=== PATIENT | female | born 1950 | race Caucasian/White ===

== ENCOUNTER 2025-01-05 17:44 | Inpatient (IN) | payer MEDICARE, OTHER, SELFPAY ==
[2025-01-05 15:35] VITALS: BP 149/80
--- NOTE | 2025-01-05 16:10 | ED.GENMED ---
History of Present Illness
General
Chief Complaint: Abnormal Lab Value
Time Seen by Provider: 01/05/25 15:45
History of Present Illness
History of Present Illness:
74-year-old woman with history of CKD with baseline creatinine of 1.5-1.7 presenting to the emergency department with abnormal outpatient labs. She had routine blood work done for preop appointment for hip replacement. Her sodium was 117. Her
creatinine was 1.9. She does drink about 80 to 100 ounces of tea. Drinks about 8 ounces of water a day. She is not on any diuretics. No vomiting diarrhea. No increased output from her last. She denies any medical complaints at this time. She
does state that she has had issues with her sodium in the past before. She last had blood work checked in December and her sodium was normal at that time.
Phy Exam
Physical Exam
Physical Exam:
GENERAL: in no acute distress
HEENT: normocephalic, extraocular movements intact, moist oral mucosa
NECK: normal inspection
RESPIRATORY: no respiratory distress, clear to auscultation bilaterally
CARDIOVASCULAR: regular rate and rhythm
ABDOMEN/: soft, non-distended, non-tender to palpation, no rebound or guarding
EXTREMITIES: non-tender, no edema/swelling
NEUROLOGIC: awake and alert, moves all extremities
SKIN: warm
Course
Orders/Labs/Results
Orders:
Orders
01/05/25 16:01
Osmolality, Random Urine Urgent
Urine Sodium Urgent
Vital Signs
Initial and Last Documented VS:
Initial Vital Signs
Temp Pulse Resp BP Pulse Ox
97.6 F 92 18 149/80 99
01/05/25 15:35 01/05/25 15:35 01/05/25 15:35 01/05/25 15:35 01/05/25 15:35
Last Documented Vital Signs
Temp Pulse Resp BP Pulse Ox
97.6 F 92 18 149/80 99
01/05/25 15:35 01/05/25 15:35 01/05/25 15:35 01/05/25 15:35 01/05/25 15:35
MDM/Problems Addressed
Differential Diagnosis Includes:
Patient is a 74-year-old woman with history of CKD presenting to the emergency department with hyponatremia seen on outpatient routine testing. On arrival vitals and exam is reassuring. I did review patient's blood work which did show sodium of
117. She does appear euvolemic. 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 Will add on urinalysis and urine sodium. Discussed with nephrology who recommended 32 ounces fluid restriction while awaiting urine results. Discussed
with hospitalist who accepted patient to their service.
*Pulse Oximetry
SaO2: 99
Oxygen Mode of Delivery: Room air
Patient hypoxic: no
*Critical Care Note
Total Time (30-74mins, 75-104mins- exclusive of procedures): Not Applicable
ED Attending Note
-
Portions of this chart may have been created with voice recognition software.� Occasional wrong word or��sound alike� substitutions may have occurred due to the inherent limitations of voice recognition software.
Discharge Plan
Departure
Patient Disposition: Admit
Date of Disposition: 01/05/25
Time of Disposition: 16:10
Presentation/result/management discussed w/ accepting MD/DO: Hospitalist
Discharge Problem:
Hyponatremia
Prescriptions:
No Action
acetaminophen [Tylenol] 325 mg Tablet
650 mg PO Q4H PRN (Reason: pain)
metoprolol succinate 50 mg Tablet Extended Release 24 Hr
50 mg PO DAILY
levothyroxine 25 mcg Tablet
25 mcg PO DAILY
sodium bicarbonate 650 mg Tablet
1,300 mg PO TID
amlodipine 10 mg Tablet
10 mg PO DAILY
simvastatin 20 mg Tablet
20 mg PO HS
gabapentin 300 mg Capsule
300 mg PO TID
loratadine 10 mg Tablet
10 mg PO DAILY
omeprazole 20 mg Tablet,Delayed Release (Dr/Ec)
20 mg PO DAILY
dabigatran etexilate [Pradaxa] 75 mg Capsule
75 mg PO BID
Women's Multivitamin
1 dose PO DAILY
magnesium L-lactate [Mag-Lactate SR] 84 mg Tablet Extended Release
84 mg PO DAILY
naproxen 250 mg Tablet
250 mg PO BID PRN (Reason: pain)
Interventions
Interventions:
*Risk Screen - Suicide Last Done: 01/05/25 15:35
*General Assessment Last Done: 01/05/25 15:35
*ED COVID-19 Vaccine History Last Done: 01/05/25 15:35
Discharge Date and Time
Print Language: MONTSERRATIAN
[2025-01-05 16:13] VITALS: BMI 29.2
--- NOTE | 2025-01-05 16:19 | HPS.HSE ---
Addendum entered and electronically signed by BONI Storey 01/05/25 17:13:
patient takes sodium bicarb as outpatient.
Original Note:
Family Physician
-
Family Physician:
Chief Complaint
-
abnormal labs.
History of Present Illness
74-year-old woman with history of CKD with baseline creatinine of 1.5-1.7, crohn's disease with ileostomy, DVT, HTN, hypothyroidism, atrial fib, CKD presenting to the emergency department with abnormal outpatient labs. She had routine blood work
done for preop appointment for hip replacement. Her sodium was 117. Her creatinine was 1.9. She does drink about 80 oz of tea. drinks 8oz juice in the morning. barely drinks water. denied HARMON,dizzy or syncope.denied fever, chills, chest pain, sob.
denied abdominal pain,n,v,d. she has heavy liquid output from Ileostomy which is normal.denied increased or decreased urine output. denied dysuria or hematuria.
admitting for further managment.not taking sodium bicarbonate.
Medical History
Past Medical History
Past Medical History: Reports Other
Additional Past Medical History:
crhon's disease
HLD
HTN
Past Surgical History: Reports Other
Additional Past Surgical History:
cholecystectomy
ileo-colectomy
rotator cuff
b/l knee replacement
Social History
Tobacco: Former Smoker
Alcohol: Daily
Drug: None
Personal:
Family History
Family History: Not pertinent
Allergies / Home Medications
Allergies reflects when Allergies were last updated in [facility].
Home Medications with original date entered in [facility]
Allergy/Medication List:
Allergies
Allergy/AdvReac Type Severity Reaction Status Date / Time
banana Allergy Diarrhea Verified 01/05/25 15:39
cefazolin (From Anc) Allergy red rash, Verified 01/05/25 15:39
itching
cephalexin Allergy red rash, Verified 01/05/25 15:39
itching
Penicillins Allergy Unknown Verified 01/05/25 15:39
Home Medications
amlodipine 10 mg tablet 10 mg PO DAILY 01/04/25
dabigatran etexilate 75 mg capsule (Pradaxa) 75 mg PO BID 01/04/25
gabapentin 300 mg capsule 300 mg PO TID 01/04/25
levothyroxine 25 mcg tablet 25 mcg PO DAILY 01/04/25
loratadine 10 mg tablet 10 mg PO DAILY 01/04/25
magnesium L-lactate 84 mg tablet,extended release 84 mg PO BID@1700,2100 01/04/25
metoprolol succinate 50 mg tablet,extended release 24 hr 50 mg PO DAILY 01/04/25
naproxen 250 mg tablet 250 mg PO BIDPRN PRN mild pain 01/04/25
omeprazole 20 mg tablet,delayed release 20 mg PO DAILY 01/04/25
simvastatin 20 mg tablet 20 mg PO HS 01/04/25
sodium bicarbonate 650 mg tablet 1,300 mg PO TID 01/04/25
therapeutic multivitamin 1 tab PO DAILY 01/04/25
magnesium L-lactate 84 mg tablet,extended release 168 mg PO DAILY 01/05/25
Review of Systems
-
Constitutional: Reports No Symptoms
EENT: Reports No Symptoms
Respiratory: Reports No Symptoms
Cardiac: Reports No Symptoms
Abdomen/GI: Reports No Symptoms
: Reports No Symptoms
Musculoskeletal: Reports No Symptoms
Skin: Reports No Symptoms
Neurological: Reports No Symptoms
Endocrine: Reports No Symptoms
Hematologic/Lymphatic: Reports No Symptoms
Psych: Reports No Symptoms
Physical Exam
Vital Signs
Vital Signs
Temp Pulse Resp BP Pulse Ox
97.6 F 92 18 149/80 99
01/05/25 15:35 01/05/25 15:35 01/05/25 15:35 01/05/25 15:35 01/05/25 16:13
Physical Exam
General: Well Developed, Well Nourished and No Apparent Distress
HEENT: NormoCephalic, Moist mucous membranes and Atraumatic
Respiratory: Clear
Cardiac: S1/S2 and Regular Rhythm; No Murmur or Rub
GI: Soft, Non Tender, Non Distended and Normal Bowel Sounds; No Organomegaly
Rectal: Deferred by Provider
Musculoskeletal: No Clubbing, No Cyanosis and No Edema
Skin: No Rash
Neuro: AO x 3 and Nonfocal/grossly intact
Psych: Calm
Data Reviewed
-
Lab Data: Labs Reviewed by me
Impression/Plan
-
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
# LULA on CKD stage III
-na 117
-fluid restriction
-urine osmolality, urine sodium
-nephrology consulted
# Essential hypertension
- Norvasc continue
#History for PE
# Paroxysmal A-fib
- Pradaxa continued
-Metoprolol continue with hold parameter
# Hyperlipidemia
- Statin continued
# GERD
- PPI continued
# Hypothyroidism
- Levothyroxine continued
# DVT prophylaxis
- Pradaxa
# CODE STATUS
- Full code
--- NOTE | 2025-01-05 16:49 | W.CON.NEPH ---
Consultation
-
Date/Time Consultation Requested: January 05, 2025
Date/Time Consultation Performed: January 05, 2025 at 4:30 PM
Requesting Provider: Dr. Burks
Performing Provider: Dr. Macdonald
Reason for Consultation: Hyponatremia
Medical History
-
Chief Complaint: Hyponatremia
History of Present Illness:
74-year-old woman with history of CKD with baseline creatinine of 1.5-1.7 presenting to the emergency department with abnormal outpatient labs. She had routine blood work done for preop appointment for hip replacement. Her sodium was 117. Her
creatinine was 1.9. She does drink about 80 to 100 ounces of tea. Drinks about 8 ounces of water a day. She is not on any diuretics. No vomiting diarrhea.
She has a ostomy bag from a Crohn's disease was done about 4 years ago which puts out watery stool on most occasions and is yet consistent. She has no symptoms of nausea vomiting she takes no acute or chronic NSAIDs. She has been hospitalized
before for hyponatremia lower than 117 in the past and she had been treated with 3% saline.
Renal consult for hyponatremia
Past Medical History
CKD with baseline creatinine of 1.5-1.7 Crohn's disease, hyperkalemia, hyperlipidemia, recurrent hyponatremia, chronic pain
Social History
Tobacco: Non-Smoker
Alcohol: None
Family History
Family History: Not Pertinent
Allergies / Home Medications
Allergy/AdvReac Type Severity Reaction Status Date / Time
banana Allergy Diarrhea Verified 01/05/25 15:39
cefazolin (From [facility]) Allergy red rash, Verified 01/05/25 15:39
itching
cephalexin Allergy red rash, Verified 01/05/25 15:39
itching
Penicillins Allergy Unknown Verified 01/05/25 15:39
�Medication �Instructions �Recorded �Confirmed �Type
amlodipine 10 mg tablet 10 mg PO DAILY 01/04/25 01/05/25 History
dabigatran etexilate 75 mg capsule 75 mg PO BID 01/04/25 01/05/25 History
(Pradaxa)
gabapentin 300 mg capsule 300 mg PO TID 01/04/25 01/05/25 History
levothyroxine 25 mcg tablet 25 mcg PO DAILY 01/04/25 01/05/25 History
loratadine 10 mg tablet 10 mg PO DAILY 01/04/25 01/05/25 History
magnesium L-lactate 84 mg 84 mg PO BID@1700,2100 01/04/25 01/05/25 History
tablet,extended release
metoprolol succinate 50 mg 50 mg PO DAILY 01/04/25 01/05/25 History
tablet,extended release 24 hr
naproxen 250 mg tablet 250 mg PO BIDPRN PRN mild pain 01/04/25 01/05/25 History
omeprazole 20 mg tablet,delayed 20 mg PO DAILY 01/04/25 01/05/25 History
release
simvastatin 20 mg tablet 20 mg PO HS 01/04/25 01/05/25 History
sodium bicarbonate 650 mg tablet 1,300 mg PO TID 01/04/25 01/05/25 History
therapeutic multivitamin 1 tab PO DAILY 01/04/25 01/05/25 History
magnesium L-lactate 84 mg 168 mg PO DAILY 01/05/25 01/05/25 History
tablet,extended release
Review of Systems
-
Tired otherwise has no symptoms
All other systems: Negative unless noted
Physical Exam
Vital Signs
Vital Signs
Temp Pulse Resp BP Pulse Ox
97.6 F 92 18 149/80 99
01/05/25 15:35 01/05/25 15:35 01/05/25 15:35 01/05/25 15:35 01/05/25 16:13
Physical Exam
General no acute distress
HEENT no cephalic atraumatic extraocular muscle intact no scleral icterus no JVD neck supple
lungs clear to auscultation bilateral
heart regular S1-S2 positive
abdomen soft nontender positive bowel sounds
extremities no edema pulses present bilateral
Neurologically nonfocal alert and oriented x 3
Skin no lesions no abrasions no petechiae
Psych normal affect no bizarre behavior
Data Reviewed
-
Labs: Labs Reviewed by me, Discussed with Physician, Discussed with Patient and Discussed with Family
Assessment/Plan
-
74-year-old woman with history of CKD with baseline creatinine of 1.5-1.7 presenting to the emergency department with abnormal outpatient labs. She had routine blood work done for preop appointment for hip replacement. Her sodium was 117. Her
creatinine was 1.9. She does drink about 80 to 100 ounces of tea. Drinks about 8 ounces of water a day. She is not on any diuretics. No vomiting diarrhea.
She has a ostomy bag from a Crohn's disease was done about 4 years ago which puts out watery stool on most occasions and is yet consistent. She has no symptoms of nausea vomiting she takes no acute or chronic NSAIDs. She has been hospitalized
before for hyponatremia lower than 117 in the past and she had been treated with 3% saline.
Renal consult for hyponatremia
Impression.
Hyponatremia 117 with a urine sodium less than 5 and urine osmolality 427.
Crohn's disease with ostomy.
Hypertension.
Osteoarthritis.
Plan.
Fluid restrict
Repeat labs in 6 hours
Start gentle normal saline
No indication for hypertonic saline at this time
[2025-01-05 17:51] VITALS: BP 118/60
--- NOTE | 2025-01-05 18:18 | W.PN.UPDATE ---
Update Note
Progress Note Update
This is an addendum to H&P written by Stacey Jean Baptiste on 01/05/2025. �Patient seen and examined independently with [employer].
74-year-old female past medical history of known hyponatremia on sodium bicarbonate, atrial fibrillation on Pradaxa, Crohn's disease with ileostomy, chronic high output ostomy, CKD, hypercholesteremia, hypertension, DVT, osteoarthritis,
hypothyroidism, presenting for sodium of 117 on outpatient labs. �Drinking 80 ounces of tea per day. �No symptoms.�
Creatinine of 1.9, as per orthopedics baseline is 1.2-1.4.
Patient with asymptomatic hyponatremia secondary to likely polydipsia. �Possibly naproxen contributing. �Urine sodium, osmolality pending. �Also with LULA. �Nephrology recommends 32 ounce fluid restriction. �Hold naproxen.� Continue sodium tablets.
May require hypertonic saline later.
[2025-01-05 18:31] VITALS: BP 143/65
[2025-01-05 18:39] VITALS: BMI 29.2
[2025-01-05] MEDS: NSS 1000 IV (18:45)
--- NOTE | 2025-01-05 19:14 | PTCARENOTE ---
pt presented from ED via stretcher, pt is AAO*3, Vss, room air. pt is oriented to the room. call woo within the reach. Plan of care ongoing.
[2025-01-05] MEDS: MAG-TAB SR 84 MG PO ×2 (19:40→21:15)
[2025-01-05] MEDS: PRADAXA 75 MG PO (19:40)
[2025-01-05] MEDS: NEURONTIN 200 MG PO (21:15)
[2025-01-05] MEDS: SODIUM BICARBONATE 1300 MG PO (21:16)
[2025-01-05] MEDS: LIPITOR 10 MG PO (21:16)
[2025-01-05] MEDS: TYLENOL 650 MG PO (21:33)
[2025-01-05 23:40] VITALS: BP 105/45
[2025-01-06 01:43] LABS: Blood Urea Nitrogen 53 mg/dl (7-17); Calcium 9.5 mg/dl (8.4-10.2); Carbon Dioxide 20 mmol/L (22-30); Chloride 93 mmol/L (98-107); Estimated Creatinine Clearance 31 ml/min; Glucose 100 mg/dl (70-99); Potassium 4.0 mmol/L (3.5-5.1); Sodium 124 mmol/L (135-145); eGFR 39.97
[2025-01-06] MEDS: SYNTHROID 25 MCG PO (05:50)
[2025-01-06 06:15] LABS: Blood Urea Nitrogen 46 mg/dl (7-17); Calcium 9.5 mg/dl (8.4-10.2); Carbon Dioxide 18 mmol/L (22-30); Chloride 97 mmol/L (98-107); Estimated Creatinine Clearance 36 ml/min; Glucose 95 mg/dl (70-99); Potassium 3.9 mmol/L (3.5-5.1); Sodium 126 mmol/L (135-145); eGFR 48.09
[2025-01-06 07:05] VITALS: BP 106/53
[2025-01-06] MEDS: CLARITIN 10 MG PO (07:59)
[2025-01-06] MEDS: PROTONIX 40 MG PO (07:59)
[2025-01-06] MEDS: PRADAXA 75 MG PO (07:59)
[2025-01-06] MEDS: NEURONTIN 200 MG PO ×2 (07:59→15:13)
[2025-01-06] MEDS: SODIUM BICARBONATE 1300 MG PO ×2 (08:00→15:13)
[2025-01-06] MEDS: NORVASC 10 MG PO (08:01)
[2025-01-06] MEDS: MAG-TAB SR 168 MG PO (08:04)
[2025-01-06] MEDS: NSS 1000 IV (08:04)
[2025-01-06] MEDS: TOPROL XL 50 MG PO (08:04)
--- NOTE | 2025-01-06 08:22 | WOUNDNOTE ---
PLANTAR TOES/FEET
--- NOTE | 2025-01-06 08:23 | WOUNDNOTE ---
L GREAT AND 2ND TOES (PLANTAR)
--- NOTE | 2025-01-06 08:26 | WOUNDNOTE ---
[facility] RN note: Patient admitted with hyponatremia. Patient lives with her .
See H&P for complete history.
PMH: CKD, Chron's with ileostomy, DVT, HTN, a fib, CKD, bilateral knee replacement, former smoker, PE.
Wound Location and type/assessment: Patient admitted with: healing second degree appearing quijano plantar great toes and L 2nd plantar toe from walking on a hot beach in [place] a week ago Friday. R great plantar toe burn pink with a small yellow
fibrin in center. +Palpable pedal pulses. Patient has a chronic R flank draining old HANH tube site from previous gall stone removal surgery. The last gallbladder stone removal surgery was at [facility] last December as per patient. She follows [facility]
surgeon and [place] [facility]. R flank wound with small opening with some raised pink tissue, small amount of green lee drainage. +Local MASD at site. Patient likes to use a Welly brand Band-aid for the site. She stated her with bring
in her Band-aids.
Appetite: on low cholesterol diet.
Pressure redistribution devices in place: [employer] Accumax. Patient is mobile. She wears comfortable slippers to ambulate.
Plan: Band-aids changed on affected toes (added Vaseline to Band-aids). [id number] Optifoam Amaury lite foam applied to R flank old drain site.
Will update and confirm orders with Dr. Oliveira or Dr. Varghese and discussed with ALLIE Delgado.
Care plan to be updated and will follow as needed. Patient to follow up with her [facility] physician and [facility].
--- NOTE | 2025-01-06 08:30 | WOUNDNOTE ---
[facility] RN note: Patient admitted with hyponatremia. Patient lives with her .
See H&P for complete history.
PMH: CKD, Chron's with ileostomy, DVT, HTN, a fib, CKD, bilateral knee replacement, former smoker, PE.
Wound Location and type/assessment: Patient admitted with: healing second degree appearing quijano plantar great toes and L 2nd plantar toe from walking on a hot beach in [place] a week ago Friday. R great plantar toe burn pink with a small yellow
fibrin in center. +Palpable pedal pulses. Patient has a chronic R flank draining old HANH tube site from previous gall stone removal surgery. The last gall stone removal surgery was at [facility] on 12/26/23 as per patient. She follows [facility] surgeon
Dr. Desmond Tim, a GI doctor and ID doctor. She stated she had a CT scan last October which was negative for abscess. She follows [place] [facility]. R flank wound with small opening with some raised pink tissue, small amount of green lee
drainage. +Local MASD at site. Patient likes to use a Welly brand Band-aid for the site. She stated her with bring in her Band-aids for her flank and toes.
Appetite: on low cholesterol diet.
Pressure redistribution devices in place: [employer] Accumax. Patient is mobile. She wears comfortable slippers to ambulate.
Plan: Band-aids changed on affected toes (added Vaseline to Band-aids). [id number] Optifoam Amaury lite foam applied to R flank old drain site.
Will update and confirm orders with Dr. Oliveira or Dr. Varghese and discussed with ALLIE Delgado.
Care plan to be updated and will follow as needed. Patient to follow up with her [facility] physician and [facility].
--- NOTE | 2025-01-06 14:10 | W.PN.NEPH.PH ---
Today's Communication / Plan
-
bmo
Assessment/Plan
-
74-year-old woman with history of CKD with baseline creatinine of 1.5-1.7 presenting to the emergency department with abnormal outpatient labs. She had routine blood work done for preop appointment for hip replacement. Her sodium was 117. Her
creatinine was 1.9. She does drink about 80 to 100 ounces of tea. Drinks about 8 ounces of water a day. She is not on any diuretics. No vomiting diarrhea.
She has a ostomy bag from a Crohn's disease was done about 4 years ago which puts out watery stool on most occasions and is yet consistent. She has no symptoms of nausea vomiting she takes no acute or chronic NSAIDs. She has been hospitalized
before for hyponatremia lower than 117 in the past and she had been treated with 3% saline.
Renal consult for hyponatremia
Impression.
Hyponatremia 117 with a urine sodium less than 5 and urine osmolality 427.
Crohn's disease with ostomy.
Hypertension.
Osteoarthritis.
Plan.
Fluid restrict
ckeck bmp now if 128 or better ok for dc with fr of 60 oz going foward
bmp friday if dc and fu with her electrophysiology tech
-
-
Date of Service: January 06, 2025
CC / HPI / ROS
-
no cp or sob
less tired today
10 point ros done
Labs
-
Labs:
Sodium 126 mmol/L (135-145) L 01/06/25 05:22
Potassium 3.9 mmol/L (3.5-5.1) 01/06/25 05:22
Chloride 97 mmol/L (98-107) L 01/06/25 05:22
Carbon Dioxide 18 mmol/L (22-30) L 01/06/25 05:22
BUN 46 mg/dl (7-17) H 01/06/25 05:22
Creatinine 1.2 mg/dL (0.6-1.0) H 01/06/25 05:22
eGFR 48.09 01/06/25 05:22
Glucose 95 mg/dl (70-99) 01/06/25 05:22
Calcium 9.5 mg/dl (8.4-10.2) 01/06/25 05:22
Physical Exam
-
Vital Signs:
Vital Signs
Temp Pulse Resp BP Pulse Ox
97.8 F 80 16 106/53 96
01/06/25 07:05 01/06/25 08:01 01/06/25 07:05 01/06/25 08:01 01/06/25 10:29
Lung Excursion:: Normal
Abdomen:: Soft
Bowel Sounds:: Normal
Extremity Edema:: None: Bilateral:
[2025-01-06 14:44] LABS: Blood Urea Nitrogen 39 mg/dl (7-17); Calcium 9.5 mg/dl (8.4-10.2); Carbon Dioxide 19 mmol/L (22-30); Chloride 101 mmol/L (98-107); Estimated Creatinine Clearance 36 ml/min; Glucose 130 mg/dl (70-99); Potassium 4.0 mmol/L (3.5-5.1); Sodium 129 mmol/L (135-145); eGFR 48.09
[2025-01-06 15:05] VITALS: BP 126/59
--- NOTE | 2025-01-06 15:41 | W.PN.NEPH.PH ---
Today's Communication / Plan
-
Okay for discharge from renal standpoint
Assessment/Plan
-
74-year-old woman with history of CKD with baseline creatinine of 1.5-1.7 presenting to the emergency department with abnormal outpatient labs. She had routine blood work done for preop appointment for hip replacement. Her sodium was 117. Her
creatinine was 1.9. She does drink about 80 to 100 ounces of tea. Drinks about 8 ounces of water a day. She is not on any diuretics. No vomiting diarrhea.
She has a ostomy bag from a Crohn's disease was done about 4 years ago which puts out watery stool on most occasions and is yet consistent. She has no symptoms of nausea vomiting she takes no acute or chronic NSAIDs. She has been hospitalized
before for hyponatremia lower than 117 in the past and she had been treated with 3% saline.
Renal consult for hyponatremia
Impression.
Hyponatremia 117 with a urine sodium less than 5 and urine osmolality 427.
Crohn's disease with ostomy.
Hypertension.
Osteoarthritis.
Plan.
Fluid restrict
Sodium improved with IV fluids and fluid restriction okay with discharge with repeat sodium ordered at 1:30 PM showing 129
I asked her to restrict fluids to 60 ounces going forward
-
-
Date of Service: January 06, 2025
CC / HPI / ROS
-
no cp or sob
less tired today
10 point ros done
Labs
-
Labs:
Sodium 129 mmol/L (135-145) L 01/06/25 14:24
Potassium 4.0 mmol/L (3.5-5.1) 01/06/25 14:24
Chloride 101 mmol/L (98-107) 01/06/25 14:24
Carbon Dioxide 19 mmol/L (22-30) L 01/06/25 14:24
BUN 39 mg/dl (7-17) H 01/06/25 14:24
Creatinine 1.2 mg/dL (0.6-1.0) H 01/06/25 14:24
eGFR 48.09 01/06/25 14:24
Glucose 130 mg/dl (70-99) H 01/06/25 14:24
Calcium 9.5 mg/dl (8.4-10.2) 01/06/25 14:24
Physical Exam
-
Vital Signs:
Vital Signs
Temp Pulse Resp BP Pulse Ox
97.8 F 80 16 106/53 96
01/06/25 07:05 01/06/25 08:01 01/06/25 07:05 01/06/25 08:01 01/06/25 10:29
Lung Excursion:: Normal
Abdomen:: Soft
Bowel Sounds:: Normal
Extremity Edema:: None: Bilateral:
--- NOTE | 2025-01-06 15:51 | W.PN.HOSP.TC ---
Addendum entered and electronically signed by Axel Guadarrama MD 01/06/25 21:33:
Attending Addendum-
I saw and evaluated the patient. I reviewed the resident�s note and agree with findings and plan as documented in the resident�s note. Sub: feels greatly improved seen with . would like to go home. Feels back to baseline. 'why am i here?'
Urinating more frequently due to IVF no other urinary sxs. Full 12 point ROS reviewed and negative except as documented Exam: Vitals reviewed in chart GEN-NAD heart RRR lungs clear abd ileostomy present with semi solid stool soft NT LE no edema
#acute on chroninc hypovolemic hyponatremia
# LULA on CKD stage IIIa
-na 117->129
-fluid restriction
-urine osmolality, urine sodium- volume depletion
-nephrology input appreciated
- ok for DC home with close follow up
# Ileostomy
- cont ostomy care
# Essential hypertension
- Norvasc continue
#History for PE
# Paroxysmal A-fib
- Pradaxa continued
-Metoprolol continue with hold parameter
# Hyperlipidemia
- Statin continued
# GERD
- PPI continued
# Hypothyroidism
- Levothyroxine continued
# DVT prophylaxis
- Pradaxa
# CODE STATUS
- Full code--> DNR
Dispo DC home
ACP
Patient consented to discuss, was with , time spent explanation of advance directives, changes in health status, patient�s health care wishes if the patient becomes unable to make health decisions, goals of care, code status, and prognosis 'i
dont want to be full code i have an advanced directive and DNR. Thank you for asking me my wishes!' - 16 minutes
Time spent coordinating care, DC planning, review of DC plan of care with resident, transition of care, review of records, med rec/scripts sent electronically, consults, notes, d/w consultants, nursing, family, and CM total time documented is
exclusive of any additional time listed that was spent in advance care planning discussion� 31 mins >50% of this time was devoted to counseling and coordination of care
Original Note:
Today's Communication/Plan
-
Patient receiving IV fluids for treatment of hyponatremia, which is improving
Amenable to discharge to home later today.
Assessment / Plan
Assessment / Plan
#Acute hypovolemic hyponatremia
-Salt tabs for Na repletion
-IV fluids: NS 70 mls/hr IV
-Na trending up on IV fluids from admission: 117 (7) > 126 (/3 AM) > 129 (3 PM)
-Monitor clinical status
-Patient amenable to discharge home later today
#Essential hypertension
-continue amlodipine
#Paroxysmal atrial fibrillation
-Continue dabigatran
-Continue metoprolol
#Hyperlipidemia
-Continue atorvastatin
#GERD
-Continue PPI
#Hypothyroidism
-continue levothyroxine
#DVT ppx
dabigatran
Anticipated Discharge: Today
Subjective/Interval History
-
Date of Service: January 06, 2025
Patient is seen OOB and sitting in the chair on hospital day #2. No current complaints. Patient feels well. Amenable to discharge home today.
Objective Data
-
Labs:
Laboratory Results
01/06/25 01/06/25
05:22 14:24
Sodium 126 L 129 L
Potassium 3.9 4.0
Chloride 97 L 101
Carbon Dioxide 18 L 19 L
BUN 46 H 39 H
Creatinine 1.2 H 1.2 H
Glucose 95 130 H
Calcium 9.5 9.5
Vital Signs:
Vital Signs
Temp Pulse Resp BP Pulse Ox
97.8 F 80 16 106/53 96
01/06/25 07:05 01/06/25 08:01 01/06/25 07:05 01/06/25 08:01 01/06/25 10:29
I&O
01/05/25 01/06/25 01/07/25
06:59 06:59 06:59
Intake Total 1080 / 1080
Output Total 750 / 750
Balance 330 / 330
Review of Systems
-
History Source: Patient
Constitutional: Denies Fatigue
Respiratory: Denies Trouble Breathing
Cardiac: Denies Chest Pain
Abdomen/GI: Denies Abdominal Pain or Nausea
Neuro: Denies Headache or Other (Denies confusion, vision changes)
Physical Exam
-
General: No Apparent Distress and Conversant
HEENT: Normocephalic and Atraumatic
Respiratory: Clear to Auscultation and Non Labored Respirations
Cardiac: Regular Rhythm; Negative Murmur, Rub or Gallop
GI: Soft, Nontender and Normal Bowel Sounds
Neuro: Awake, AO x 3, No Motor Deficits, No Sensory Deficits and Other (Cranial nerves intact); Negative Slurred Speech
Psych: Calm
Data Reviewed
-
Labs: Labs Reviewed by me
--- NOTE | 2025-01-06 16:20 | CM ---
Alert awake oriented patient who lives with her Domingo in a 2 story home with 1 step to enter and 13 steps to bed/bathroom. She is independent in activates of daily living.She does drive .She uses no adaptive devices.
Stephan[facility] VN in past . No SNF hx
Pharmacy [facility]
PCP Dr Pack
PLAN Home with no needs
[2025-01-06] MEDS: MAG-TAB SR 84 MG PO (16:45)
--- NOTE | 2025-01-07 18:35 | W.DCSUMMARY ---
Addendum entered and electronically signed by Axel Guadarrama MD 01/07/25 22:40:
Read, reviewed, and agree. See same day progress note for additional details.
Ashwin Guadarrama MD
Original Note:
Documented by User: Nigel Varghese MD, Resident 01/07/25 19:45
Discharge Summary
Discharge Data
Date of Admission: 01/05/25
Date of Discharge: 01/06/25
-
Pending Results: No
Hospital Course
Discharging Physician : Nigel Varghese MD; Axel Guadarrama MD
Disposition : Home
Primary care physician : � � �Gaston Pack
Principal Discharge diagnosis : Acute on chronic hypovolemic hyponatremia; LULA on CKD stage IIIa
Chronic Discharge diagnosis : Essential hypertension; paroxysmal A-fib; hyperlipidemia; GERD; hypothyroidism
Hospital Course : Patient underwent preoperative blood work for hip replacement, which found her to be hyponatremic with a sodium of 117. Patient was also found to have an acute kidney injury with a creatinine of 1.9. Patient was asymptomatic on
presentation. Patient was treated with oral fluid restriction and IV normal saline to treat her hyponatremia and LULA. The patient's sodium and creatinine levels were serially monitored, which showed both levels incrementally improving. Patient
remained asymptomatic throughout the hospital course. Patient's sodium level julia to 129 and creatinine returned to baseline, and she was cleared for discharge. Patient was directed to restrict oral fluid intake to 60 fluid ounces per day going
forward. Repeat BMP January 11.
In addition, the patient's chronic medical conditions were managed as follows:
1. Essential hypertension: Managed with home medication amlodipine 10 mg p.o. daily. Patient remained clinically stable.
2. Paroxysmal A-fib: Managed with home medications dabigatran and metoprolol succinate 50 mg p.o. daily. Patient remained clinically stable
3. Hyperlipidemia: Managed with atorvastatin 10 mg p.o. daily. Patient remained clinically stable.
4. Hypothyroidism: Managed with levothyroxine 25 mcg p.o. daily. Patient remained clinically stable
5. GERD: Managed with pantoprazole 40 mg. Patient remained clinically stable
Important imaging findings : N/A
Procedure findings : N/A
Discharge Plan
-
Patient Disposition: Home (Routine Discharge)
Discharge Diagnosis/Procedures: Acute hypovolemic hyponatremia
Condition: Good
Diet: As tolerated
Additional Diets: Per nephrology, limit fluid intake to 60 fl oz per day
Activity: As tolerated
Driving Restrictions: As prior to admission
Bathing Restrictions: None
Blood Work: Follow-up basic metabolic panel (BMP) in one week
Activity Restrictions/Additional Instructions:
Follow up with PCP within one week
Wound Care Instructions
Plantar toe quijano-clean with saline or soap and water, Vaseline, cover with Band-aid, change daily and as needed loosened dressing.
R flank draining area-clean with saline or soap and water, cover with patient's Band-aid, change daily and as needed for drainage.
Follow up with restaurant maintenance technician as needed.
Follow up with [facility] or wound care center .
Referrals:
Ant Pack DO [Family Provider, Family Practice]
Prescriptions:
Continued
metoprolol succinate 50 mg Tablet Extended Release 24 Hr
50 mg PO DAILY
therapeutic multivitamin Tablet
1 tab PO DAILY
levothyroxine 25 mcg Tablet
25 mcg PO DAILY
amlodipine 10 mg Tablet
10 mg PO DAILY
simvastatin 20 mg Tablet
20 mg PO HS
gabapentin 300 mg Capsule
300 mg PO TID
loratadine 10 mg Tablet
10 mg PO DAILY
omeprazole 20 mg Tablet,Delayed Release (Dr/Ec)
20 mg PO DAILY
dabigatran etexilate [Pradaxa] 75 mg Capsule
75 mg PO BID
magnesium L-lactate 84 mg Tablet Extended Release
84 mg PO BID@1700,2100
naproxen 250 mg Tablet
250 mg PO BIDPRN PRN (Reason: mild pain)
magnesium L-lactate 84 mg Tablet Extended Release
168 mg PO DAILY
Discontinued
sodium bicarbonate 650 mg Tablet
1,300 mg PO TID
Discharge Orders:
Discharge Patient (As Directed); Ordered 01/06/25
Ordered By: Nigel Varghese
Discharge Date and Time
Discharge Date/Time: 01/06/25 17:39
Print Language: HONDURAN

Documented by User: Axel Guadarrama MD 01/07/25 22:40
Discharge Summary
Discharge Data
Date of Admission: 01/05/25
Date of Discharge: 01/07/25
Discharge Plan
-
Patient Disposition: Home (Routine Discharge)
Discharge Diagnosis/Procedures: Acute hypovolemic hyponatremia
Condition: Good
Diet: As tolerated
Additional Diets: Per nephrology, limit fluid intake to 60 fl oz per day
Activity: As tolerated
Driving Restrictions: As prior to admission
Bathing Restrictions: None
Blood Work: Follow-up basic metabolic panel (BMP) in one week
Activity Restrictions/Additional Instructions:
Follow up with PCP within one week
Wound Care Instructions
Plantar toe quijano-clean with saline or soap and water, Vaseline, cover with Band-aid, change daily and as needed loosened dressing.
R flank draining area-clean with saline or soap and water, cover with patient's Band-aid, change daily and as needed for drainage.
Follow up with restaurant maintenance technician as needed.
Follow up with [facility] or wound care center .
Referrals:
Ant Pack, [Family Provider, Family Practice]
Prescriptions:
Continued
metoprolol succinate 50 mg Tablet Extended Release 24 Hr
50 mg PO DAILY
therapeutic multivitamin Tablet
1 tab PO DAILY
levothyroxine 25 mcg Tablet
25 mcg PO DAILY
amlodipine 10 mg Tablet
10 mg PO DAILY
simvastatin 20 mg Tablet
20 mg PO HS
gabapentin 300 mg Capsule
300 mg PO TID
loratadine 10 mg Tablet
10 mg PO DAILY
omeprazole 20 mg Tablet,Delayed Release (Dr/Ec)
20 mg PO DAILY
dabigatran etexilate [Pradaxa] 75 mg Capsule
75 mg PO BID
magnesium L-lactate 84 mg Tablet Extended Release
84 mg PO BID@1700,2100
naproxen 250 mg Tablet
250 mg PO BIDPRN PRN (Reason: mild pain)
magnesium L-lactate 84 mg Tablet Extended Release
168 mg PO DAILY
Discontinued
sodium bicarbonate 650 mg Tablet
1,300 mg PO TID
Discharge Orders:
Discharge Patient (As Directed); Ordered 01/06/25
Ordered By: Nigel Varghese
Discharge Date and Time
Discharge Date/Time: 01/06/25 17:39
Print Language: HONDURAN
== END 2025-01-06 17:39 | disposition home or self-care (01) | DRG 641 ==
LOC: 4 EAST ACU 17:44
PROVIDERS: Registered Nurse; ADMITTING PHYSICIAN Hospitalist; ATTENDING PHYSICIAN Family Medicine; EMERGENCY PHYSICIAN Student in an Organized Health Care Education/Training Program; FAMILY PHYSICIAN Family Medicine; OTHER PHYSICIAN Internal Medicine Nephrology
DX: E86.1 Hypovolemia (principal); N17.9 Acute kidney failure, unspecified; K50.90 Crohn's disease, unspecified, without complications; E87.1 Hypo-osmolality and hyponatremia; I12.9 Hypertensive chronic kidney disease with stage 1 through stage 4 chronic kidney disease, or unspecified chronic kidney disease; N18.31 Chronic kidney disease, stage 3a; I48.0 Paroxysmal atrial fibrillation; E78.5 Hyperlipidemia, unspecified; K21.9 Gastro-esophageal reflux disease without esophagitis; E03.9 Hypothyroidism, unspecified; Z79.890 Hormone replacement therapy; Z79.899 Other long term (current) drug therapy; Z66 Do not resuscitate; Z96.653 Presence of artificial knee joint, bilateral; Z87.891 Personal history of nicotine dependence; Z88.1 Allergy status to other antibiotic agents; Z88.0 Allergy status to penicillin; Z86.711 Personal history of pulmonary embolism; E87.5 Hyperkalemia; G89.29 Other chronic pain; M19.90 Unspecified osteoarthritis, unspecified site; Z91.018 Allergy to other foods
CPT/HCPCS: 80048; 83930; 83935; 84300; 93005; 99285

== ENCOUNTER 2025-01-12 05:47 | Inpatient (IN) | payer MEDICARE, OTHER, SELFPAY ==
--- NOTE | 2024-12-13 10:57 | CM ---
CM reviewed medical records. CM spoke with patient via live telephone. Patient confirmed demographics. Patient is active with her PCP at [facility]. Patient has medication coverage and plans to you the [facility] in [place]. Patient has had
a history of VN, but is currently not on service. Patient does not have a SNF history. Patient stated that she has all the DME that she needs and confirmed that she has borrowed equipment from friends and family.
Patient's and son will be available for transportation and supervision.
CM encouraged patient to make outpatient PT appointment on 01/14. Patient intends to make that appointment.
PLAN: Home with outpatient PT, patient to make appointment.
[2025-01-05 09:42] VITALS: BMI 27.5
[2025-01-05 11:09] LABS: Hematocrit 35.7 % (37.0-47.0); Hemoglobin 12.8 g/dL (12.0-16.0); Mean Corp Hgb Conc. 35.9 g/dL (33.0-37.0); Mean Corpuscular Volume 87.5 fL (81.0-99.0); Platelet Count 422 10^3/uL (130-400); Red Cell Dist. Width 12.3 % (11.5-14.5)
[2025-01-05 12:02] LABS: ALT (SGPT) 28 U/L (0-35); AST (SGOT) 38 U/L (14-36); Albumin 4.9 g/dl (3.5-5.0); Alkaline Phosphatase 116 U/L (38-126); Blood Urea Nitrogen 65 mg/dl (7-17); Calcium 10.1 mg/dl (8.4-10.2); Carbon Dioxide 20 mmol/L (22-30); Chloride 84 mmol/L (98-107); Estimated Creatinine Clearance 23 ml/min; Glucose 94 mg/dl (70-99); Potassium 4.3 mmol/L (3.5-5.1); Sodium 117 mmol/L (135-145); Total Protein 8.0 g/dl (6.3-8.2); eGFR 27.71
[2025-01-05 13:02] LABS: Glycohemoglobin (HgbA1c) 6.2 % (4.0-5.6)
[2025-01-05 14:17] VITALS: BMI 27.5
--- NOTE | 2025-01-05 15:16 | W.PREADMORTH ---
Ortho Preadmission Testing
-
Late entry - I called patient re: her labs today, in particular her sodium and creatinine.
She has a known history of hyponatremia for which she takes sodium bicarb TID. Her sodium today, however, is critically low at 117.
She also has underlying CKD stage 3 (baseline 1.2-1.4 per records). Today her labs demonstrate an LULA with a creatinine of 1.9.
I expressed my concerns to the patient and she has reluctantly agreed to go to the ER for further treatment.
I recommended [facility] for ER treatment given her records can be easily reviewed afterwards.
She reports she will either come here or [place] which is closer for her.
Dr. Sagastume notified of labs today. Will await further instructions re: upcoming surgery on 01/12.
[2025-01-12] VITALS (16 sets, daily range): BP systolic 96–126; BP diastolic 49–72; PULSE 75; O2SAT 95–96; BMI 27.5
[2025-01-12] MEDS: TYLENOL 650 MG PO ×4 (06:35→23:21)
[2025-01-12] MEDS: CELEBREX 200 MG PO (06:36)
[2025-01-12] MEDS: NORMOSOL-R/PLASMALYTE-A 1000 IV (06:38)
[2025-01-12 07:03] LABS: Blood Urea Nitrogen 50 mg/dl (7-17); Calcium 10.0 mg/dl (8.4-10.2); Carbon Dioxide 21 mmol/L (22-30); Chloride 90 mmol/L (98-107); Estimated Creatinine Clearance 23 ml/min; Glucose 103 mg/dl (70-99); Potassium 3.9 mmol/L (3.5-5.1); Sodium 124 mmol/L (135-145); eGFR 27.71
[2025-01-12] MEDS: DILAUDID 0.25 MG IV (08:01)
[2025-01-12] MEDS: DILAUDID 0.5 MG IV ×3 (08:17→08:42)
[2025-01-12] MEDS: NSS 1000 IV (09:01)
[2025-01-12] MEDS: ROXICODONE 5 MG PO ×4 (09:05→23:21)
--- NOTE | 2025-01-12 10:19 | W.PN.UPDATE ---
Update Note
Progress Note Update
R hip OA s/p R LORETTA w/ Dr Sagastume 01/12/25
- s/p b/l TKA, 2009, at an outside facility
DVT prophylaxis - resumption of home Pradaxa, b/l venous foot pumps
HTN - + parameters - monitor BP
PAF, pharmacological therapy with Metoprolol and oral anticoagulation with Pradaxa
PACs, asymptomatic
- Monitor on tele
- Continue BB
- Resume Pradaxa tonight
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
Pulmonary embolism per records
- Resume Pradaxa tonight
- Early mobility as tolerated
- Plasma flow devices HIGHLY recommended for outpatient use
CKD stage 3 with history of recurrent acute kidney injuries - repeat BMP tonight and tomorrow
- Baseline Cr ranges between 1.2-1.7
- Minimize nephrotoxins
- Consult nephrology d/t LULA
GERD - continue PPI therapy
Crohn's disease, status post ileostomy 2020 - per pt preference, will initially order Colace and Senna prn
Fatty liver disease with mildly elevated transaminase - reduce max dose of Tylenol daily
Chronic hyponatremia, on sodium bicarbonate
Chronic hypomagnesemia, on oral supplement
History of hyperkalemia
- BMP tonight and in AM
- Continue supplements
- NSS running
- Fluid restriction in place
- Consult nephrology for further recs
HLD
History of intraabdominal abscess
Spinal stenosis
Hypothyroidism
Secondary hyperparathyroidism of renal origin
Basal cell carcinoma, status post excision
PTSD
Vitamin D deficiency
Mild thrombocytosis
Prediabetes, A1c 6.2
Remote history of tobacco abuse
[2025-01-12] MEDS: CLARITIN PO (11:15)
[2025-01-12] MEDS: PROTONIX 20 MG PO ×2 (11:17→21:30)
[2025-01-12] MEDS: SODIUM BICARBONATE PO (11:18)
[2025-01-12] MEDS: NEURONTIN 300 MG PO ×2 (11:18→20:46)
--- NOTE | 2025-01-12 11:27 | W.CON.NEPH ---
Addendum entered and electronically signed by Mark Obrien MD 01/12/25 17:31:
Resident note below reviewed with the following additions
74-year-old female seen previously with hyponatremia but noted to have high fluid intake. It was recommended that she cut her fluid intake down closer to 60 ounces. She was able to manage 70 ounces per day. She does note that she still has
significant output from her ostomy, and has to empty it every 2 hours., Likely totaling a 2 L loss over the day. She returns today for elective right hip arthroplasty. Blood work preoperatively demonstrated a sodium level of 124 and a creatinine
of 1.9.
I agree with the exam below.
Lab values reviewed as well as older values as noted.
X-ray on 01/12/2025 of the right hip shows satisfactory placement of the replacement
Impression
Hyponatremia
LULA on CKD IIIa
Crohn's disease
Ostomy with output
Hypertension
Osteoarthritis
Plan
Significant GI volume loss, which is chronic
Removed fluid restriction
Continue saline
IV bolus at this time given hypotension
She would benefit from improved oral intake or reduction of ostomy output though she believes that multiple things have been tried for the ostomy output in the past without success
She has apparently also tried salt tablets but this had caused nausea
She has received outpatient IV fluids saline which has helped
Follow BMP
Original Note:
Consultation
-
Date/Time Consultation Requested: 01-12-25
Date/Time Consultation Performed: 01-12-25
Requesting Provider: Sarina Aldana
Performing Provider: Dr. Mark Obrien
Reason for Consultation: Hyponatremia; acute kidney injury
Medical History
-
Chief Complaint: Joint pain
History of Present Illness:
Marina Barrett, 74-year-old with CKD IIIa, is admitted for R hip arthroplasty, which she had today. She was recently admitted for hyponatremia found in outpatient labs, treated with 60 oz fluid restriction and IV NSS. Cause for her hyponatremia was
attributed to drinking too much tea, about 100-120 oz per day. She was discharged home on 60 oz of fluid restriction. Labs before OR today showed worsened hyponatremia (124) from discharge last admission (129), and an LULA (1.9 from 1.2). Her
baseline cr is around 1.2-1.5. In the past 4 days that she had the fluid restriction at home, she has managed to follow it as prescribed. She has continued to put out considerable output in her colostomy bag - about 10 oz every 2 hours or about 120
oz per day
Past Medical History
CKD with baseline creatinine of 1.2-1.5 Crohn's disease, hyperkalemia, hyperlipidemia, recurrent hyponatremia, chronic pain
Social History
Tobacco: Non-Smoker
Alcohol: None
Family History
Family History: Not Pertinent
Allergies / Home Medications
Allergy/AdvReac Type Severity Reaction Status Date / Time
banana Allergy Diarrhea Verified 01/12/25 06:12
cefazolin (From Ancef) Allergy red rash, Verified 01/12/25 06:12
itching
cephalexin Allergy red rash, Verified 01/12/25 06:12
itching
Penicillins Allergy Remote Verified 01/12/25 06:12
reaction
�Medication �Instructions �Recorded �Confirmed �Type
amlodipine 10 mg tablet 10 mg PO DAILY Blood Pressure 01/04/25 01/12/25 History
dabigatran etexilate 75 mg capsule 75 mg PO BID Blood Clot 01/04/25 01/12/25 History
(Pradaxa) Prevention/Tx
gabapentin 300 mg capsule 300 mg PO TID Neurological 01/04/25 01/12/25 History
Condition
levothyroxine 25 mcg tablet 25 mcg PO DAILY Thyroid 01/04/25 01/12/25 History
loratadine 10 mg tablet 10 mg PO DAILY Allergies 01/04/25 01/12/25 History
magnesium L-lactate 84 mg 84 mg PO BID@1700,2100 Supplement 01/04/25 01/12/25 History
tablet,extended release
metoprolol succinate 50 mg 50 mg PO DAILY Blood Pressure 01/04/25 01/12/25 History
tablet,extended release 24 hr
naproxen 250 mg tablet 250 mg PO BIDPRN PRN mild pain 01/04/25 01/12/25 History
omeprazole 20 mg tablet,delayed 20 mg PO DAILY Gastrointestinal 01/04/25 01/12/25 History
release Issue
simvastatin 20 mg tablet 20 mg PO HS High Cholesterol 01/04/25 01/12/25 History
therapeutic multivitamin 1 tab PO DAILY Supplement 01/04/25 01/12/25 History
magnesium L-lactate 84 mg 168 mg PO DAILY Supplement 01/05/25 01/12/25 History
tablet,extended release
sodium bicarbonate 650 mg tablet 1,300 mg PO BID 01/12/25 01/12/25 History
Review of Systems
-
History Source: Patient
All other systems: Negative unless noted
Constitutional: No Symptoms
EENT: No Symptoms
Respiratory: No Symptoms
Cardiac: No Symptoms
Abdomen/GI: No Symptoms
: No Symptoms
Musculoskeletal: Joint Pain
Skin: No Symptoms
Neurological: No Symptoms
Endocrine: No Symptoms
Hematologic/Lymphatic: No Symptoms
Physical Exam
Vital Signs
Vital Signs
Temp Pulse Resp BP Pulse Ox
97.6 F 83 16 123/71 97
01/12/25 09:50 01/12/25 09:50 01/12/25 09:50 01/12/25 09:50 01/12/25 09:50
Lab Results
WBC 7.6 10^3/uL (4.8-10.8) 01/05/25 10:09
RBC 4.08 10^6/uL (4.20-5.40) L 01/05/25 10:09
Hgb 12.8 g/dL (12.0-16.0) 01/05/25 10:09
Hct 35.7 % (37.0-47.0) L 01/05/25 10:09
Plt Count 422 10^3/uL (130-400) H 01/05/25 10:09
eGFR 27.71 01/12/25 06:25
Albumin 4.9 g/dl (3.5-5.0) 01/05/25 10:09
Physical Exam
HEENT: Anicteric and Conjunctivae Clear
Respiratory: Clear and Nonlabored Respirations
Cardiac: S1/S2 and Regular Rate/Rhythm
Abdomen: Soft, Nontender, Nondistended and Other (colostomy)
Genito-urinary: No Costovertebral Tender
Musculoskeletal: No Clubbing, No Cyanosis and No Edema
Skin: No Rash and No Bruising
Neuro: Nonfocal/Grossly Intact
Psych: Mood/afflect pleasant and Insight/judgement good
Data Reviewed
-
Radiology: Image Personally Visualized and interpreted
Labs: Labs Reviewed by me, Discussed with Patient and Discussed with Family
Assessment/Plan
-
Impression
Hyponatremia
LULA on CKD IIIa
Crohn's disease
Ostomy with likely chronic diarrhea
Hypertension
Osteoarthritis
Plan
Significant GI volume loss, which is chronic, with fluid restriction likely caused a volume depleted state.
Excess ADH likely multifactorial.
Discontinue fluid restriction.
Encouraged her routine fluid intake.
Continue IV NSS.
Follow BMP.
Limit NSAIDs use.
--- NOTE | 2025-01-12 14:44 | PTCARENOTE ---
0945 Pt arriveed from PACU. VSS. 99% 2L O2. Pt AAOX3. Neurovascular checks with in normal limits. IVF infusing. scant dressing to primaseal. Assessment questions complete. oriented to room and call woo. bed locked and in lowest position.
[2025-01-12] MEDS: NSS 500 IV (17:45)
[2025-01-12] MEDS: MAG-TAB SR 84 MG PO ×2 (17:45→20:47)
[2025-01-12] MEDS: ANCEF IV (17:47)
[2025-01-12] MEDS: ANCEF 5 IV (18:25)
[2025-01-12] MEDS: BACTROBAN 2% OINTMENT 1 APPLIC NASAL (20:46)
[2025-01-12] MEDS: DECADRON 4 MG PO (20:46)
[2025-01-12] MEDS: SODIUM BICARBONATE 1300 MG PO (20:47)
[2025-01-12] MEDS: PRADAXA 75 MG PO (20:47)
[2025-01-12] MEDS: LIPITOR 10 MG PO (21:26)
[2025-01-12 21:29] LABS: Blood Urea Nitrogen 40 mg/dl (7-17); Calcium 8.2 mg/dl (8.4-10.2); Carbon Dioxide 17 mmol/L (22-30); Chloride 97 mmol/L (98-107); Estimated Creatinine Clearance 32 ml/min; Glucose 219 mg/dl (70-99); Magnesium 1.2 mg/dl (1.6-2.3); Potassium 4.3 mmol/L (3.5-5.1); Sodium 124 mmol/L (135-145); eGFR 39.97
[2025-01-13 03:00] VITALS: BP 126/66
[2025-01-13] MEDS: ROXICODONE 5 MG PO ×2 (05:15→10:35)
[2025-01-13] MEDS: TYLENOL 650 MG PO ×2 (05:16→11:38)
[2025-01-13] MEDS: ANCEF 5 IV (06:03)
[2025-01-13 07:12] LABS: Blood Urea Nitrogen 34 mg/dl (7-17); Calcium 8.5 mg/dl (8.4-10.2); Carbon Dioxide 22 mmol/L (22-30); Chloride 99 mmol/L (98-107); Estimated Creatinine Clearance 37 ml/min; Glucose 127 mg/dl (70-99); Magnesium 1.4 mg/dl (1.6-2.3); Potassium 4.3 mmol/L (3.5-5.1); Sodium 127 mmol/L (135-145); eGFR 48.09
[2025-01-13 07:35] VITALS: BP 120/58
[2025-01-13] MEDS: PROTONIX 20 MG PO (08:26)
[2025-01-13] MEDS: CLARITIN 10 MG PO (08:26)
[2025-01-13] MEDS: SODIUM BICARBONATE 1300 MG PO (08:27)
[2025-01-13] MEDS: PRADAXA 75 MG PO (08:27)
[2025-01-13] MEDS: NEURONTIN 300 MG PO (08:27)
[2025-01-13] MEDS: DECADRON 4 MG PO (08:28)
[2025-01-13] MEDS: BACTROBAN 2% OINTMENT 1 APPLIC NASAL (08:28)
[2025-01-13] MEDS: TOPROL XL 50 MG PO (08:29)
[2025-01-13] MEDS: SYNTHROID 25 MCG PO (08:30)
[2025-01-13] MEDS: MAG-TAB SR 168 MG PO (08:58)
--- NOTE | 2025-01-13 10:50 | CM ---
Patient seen at bedside with patient and PA. Patient stated that they livves in a 2 story home with commode, walker, cane and grab bars. Patient in process of changing her PCP but currently goes to [facility]; Dr. Cain
Ramone. Patient plan is home with and follow up with outpatient therapy. Patient uses the [facility] in [place]. Patient is for discharge home today and IMM completed and signed form placed on chart. CM will continue to follow for
dsicharge planning needs.
Plan; home with outpatient therapy per surgery
[2025-01-13 11:02] VITALS: BP 106/49; PULSE 75; O2SAT 96
--- NOTE | 2025-01-13 11:04 | W.PN.ORTHO ---
Today's Communication / Plan
-
Await PT and OT recs.
D/c possible for later today w/ the understanding she gets a repeat BMP drawn 01/17. Pt agreeable. Labs trending in right direction.
Assessment
.
Distal Motor Intact: Yes
Dressing:
Clean, dry and intact.
Assessment:
R hip OA s/p R LORETTA w/ Dr Sagastume 01/12/25
- s/p b/l TKA, 2009, at an outside facility
DVT prophylaxis - resumption of home Pradaxa, b/l venous foot pumps
HTN - + parameters - BPs currently stable
- s/p IVF bolus last night due to hypotension
PAF, pharmacological therapy with Metoprolol and oral anticoagulation with Pradaxa
PACs, asymptomatic
- Maintaining NSR on tele
- Continue BB
- Resumed Pradaxa evening of surgery
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
Pulmonary embolism per records
- Resumed Pradaxa evening of surgery
- Early mobility as tolerated
- Plasma flow devices HIGHLY recommended for outpatient use
CKD stage 3 with history of recurrent acute kidney injuries - Creatinine improved from 1.9 -> 1.4 -> 1.2 post-op
- Baseline Cr ranges between 1.2-1.7
- Continue to minimize nephrotoxins
- Appreciate nephrology recs
- Repeat BMP 01/17, w/ results to routine accredited pharmacy technician. Pt reportedly already has script.
GERD - continue PPI therapy
Crohn's disease, status post ileostomy 2020 - per pt preference, will initially order Colace and Senna prn
Fatty liver disease with mildly elevated transaminase - reduce max dose of Tylenol daily
Chronic hyponatremia, on sodium bicarbonate
Chronic hypomagnesemia, on oral supplement
History of hyperkalemia
- Electrolyte imbalances likely 2* GI losses from ileostomy
- Sodium and magnesium improving w/ continuation of supplements. Pt has remained asymptomatic throughout inpatient stay.
- s/p NSS
- Fluid restriction d/c by nephro
- Repeat BMP Friday, 01/17, w/ results to routine accredited pharmacy technician
HLD
History of intraabdominal abscess
Spinal stenosis
Hypothyroidism
Secondary hyperparathyroidism of renal origin
Basal cell carcinoma, status post excision
PTSD
Vitamin D deficiency
Mild thrombocytosis
Prediabetes, A1c 6.2
Remote history of tobacco abuse
Plan
.
Surgery / Date: R LORETTA w/ Dr Sagastume 01/12/25
DVT Prophylaxis: Pradaxa
Activity:
Out of bed.
PT/OT
Discharge Plan: Home w/ Outpatient PT
Subjective
.
.:
Patient resting comfortably in her chair.
R hip pain reportedly overall well controlled w/ Oxycodone.
Denies any acute complaints. Feels overall well.
Eager for potential d/c today.
Vital Signs and Labs
.
Vital Signs and Labs:
Lab Results
01/05/25 10:09
01/13/25 05:35
Temp Pulse Resp BP Pulse Ox
97.9 F 78 18 120/58 97
01/13/25 07:35 01/13/25 08:28 01/13/25 07:35 01/13/25 08:28 01/13/25 07:35
Non-invasive Hgb result: 12.2
Physical Exam
-
HEENT: No pallor, cyanosis, or jaundice. Throat clear.
NECK: Supple. No JVD.
RESPIRATORY: Lungs clear to auscultation.
CVS: S1, S2 normal. RRR.�
ABDOMEN: Soft, non-tender. No distension. +Ileostomy bag.
EXTREMITIES: Small bruise noted by R hip incision. Strength equal, no calf pain with palpation/dorsiflexion. Calves soft.
GLUTEN SETTLING TENDER: AOx3. No focal deficits. management trainee marketing grossly intact
--- NOTE | 2025-01-13 11:12 | W.PN.NEPH.PH ---
Today's Communication / Plan
-
Discharge
Assessment/Plan
-
Impression
Hyponatremia
LULA on CKD IIIa
Crohn's disease
Ostomy with output
Hypertension
Osteoarthritis
Plan
No fluid or dietary restrictions from a renal perspective
She has follow-up with her lead mechanic as an outpatient
Blood work Friday using her lead mechanic outpatient slip
Okay for discharge
-
-
Date of Service: January 13, 2025
CC / HPI / ROS
-
Chief Complaint:
Hyponatremia
History of Present Illness:
Sodium 127 with saline
BP improved and stable
High ostomy output
Review of Systems:
No chest pain or shortness of breath
Labs
-
Labs:
WBC 7.6 10^3/uL (4.8-10.8) 01/05/25 10:09
RBC 4.08 10^6/uL (4.20-5.40) L 01/05/25 10:09
Hgb 12.8 g/dL (12.0-16.0) 01/05/25 10:09
Hct 35.7 % (37.0-47.0) L 01/05/25 10:09
Plt Count 422 10^3/uL (130-400) H 01/05/25 10:09
Sodium 127 mmol/L (135-145) L 01/13/25 05:35
Potassium 4.3 mmol/L (3.5-5.1) 01/13/25 05:35
Chloride 99 mmol/L (98-107) 01/13/25 05:35
Carbon Dioxide 22 mmol/L (22-30) 01/13/25 05:35
BUN 34 mg/dl (7-17) H 01/13/25 05:35
Creatinine 1.2 mg/dL (0.6-1.0) H 01/13/25 05:35
eGFR 48.09 01/13/25 05:35
Glucose 127 mg/dl (70-99) H 01/13/25 05:35
Calcium 8.5 mg/dl (8.4-10.2) 01/13/25 05:35
Albumin 4.9 g/dl (3.5-5.0) 01/05/25 10:09
Physical Exam
-
Vital Signs:
Vital Signs
Temp Pulse Resp BP Pulse Ox
97.9 F 78 18 120/58 97
01/13/25 07:35 01/13/25 08:28 01/13/25 07:35 01/13/25 08:28 01/13/25 07:35
--- NOTE | 2025-01-13 11:24 | W.DS.TRANS ---
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
-
Discharge Instructions:
Sleep Apnea Risk Intermediate
Discharge Diagnosis/Procedures R hip OA s/p R [facility] w/ Dr Sagastume 01/12/25
Diet Other diet
Additional Diets Diabetic carb controlled x1 week for wound
healing/infection prevention.
Adequate hydration, minimize opioids, and wear
TEDs stockings to prevent low blood pressure/
dizziness.
Activity As tolerated,With Walker
Driving Restrictions Not until seen by your Dr
Bathing Restrictions OK to Shower
Blood Work BMP (ATTN: Sodium and BUN/Creatinine) on Friday,
01/17/25 w/ results to primary care and
nephrology (Dr. Syed Valdes). You have a script
for this already.
Other Services PT
Wound Care Dressing to be removed 1 week post-surgery.
Instructions:
Stand-Alone Forms: Total Hip/Knee Replacement D/C
Changes to Home Medications: Yes
Discharge Medications:
DC Medications w/original date entered in [facility]
dabigatran etexilate 75 mg capsule (Pradaxa) 75 mg PO BID Blood Clot Prevention/Tx 01/04/25
levothyroxine 25 mcg tablet 25 mcg PO DAILY Thyroid 01/04/25
loratadine 10 mg tablet 10 mg PO DAILY Allergies 01/04/25
magnesium L-lactate 84 mg tablet,extended release 84 mg PO BID@1700,2100 Supplement 01/04/25
metoprolol succinate 50 mg tablet,extended release 24 hr 50 mg PO DAILY Blood Pressure 01/04/25
omeprazole 20 mg tablet,delayed release 20 mg PO DAILY Gastrointestinal Issue 01/04/25
simvastatin 20 mg tablet 20 mg PO HS High Cholesterol 01/04/25
therapeutic multivitamin 1 tab PO DAILY Supplement 01/04/25
magnesium L-lactate 84 mg tablet,extended release 168 mg PO DAILY Supplement 01/05/25
mupirocin 2 % topical ointment 1 applic intranasal BID #1 tube 01/05/25
sodium bicarbonate 650 mg tablet 1,300 mg PO BID 01/12/25
acetaminophen 325 mg tablet 650 mg (2 x 325 mg) PO Q6H #60 tabs 01/13/25
amlodipine 10 mg tablet 10 mg PO DAILY Blood Pressure #1 tab 01/13/25
dexamethasone 4 mg tablet 4 mg PO BID Anti-inflammatory #5 tabs 01/13/25
docusate sodium 100 mg capsule 100 mg PO BID PRN constipation #30 caps 01/13/25
gabapentin 300 mg capsule 300 mg PO TID neuropathic pain #1 cap 01/13/25
ondansetron HCl 4 mg tablet 4 mg PO Q6H PRN nausea and vomiting #30 tabs 01/13/25
oxycodone 5 mg tablet 5 - 10 mg (1 - 2 x 5 mg) PO Q6H PRN moderate-severe pain #30 tabs 01/13/25
sennosides 8.6 mg tablet (Dina-mojgan) 17.2 mg (2 x 8.6 mg) PO BID PRN constipation #30 tabs 01/13/25
Home Medication Changes
acetaminophen 325 mg tablet 650 mg (2 x 325 mg) PO Q6H #60 tabs 01/13/25
dexamethasone 4 mg tablet 4 mg PO BID Anti-inflammatory #5 tabs 01/13/25
docusate sodium 100 mg capsule 100 mg PO BID PRN constipation #30 caps 01/13/25
gabapentin 300 mg capsule 300 mg PO TID neuropathic pain #1 cap 01/13/25
ondansetron HCl 4 mg tablet 4 mg PO Q6H PRN nausea and vomiting #30 tabs 01/13/25
oxycodone 5 mg tablet 5 - 10 mg (1 - 2 x 5 mg) PO Q6H PRN moderate-severe pain #30 tabs 01/13/25
sennosides 8.6 mg tablet (Dina-mojgan) 17.2 mg (2 x 8.6 mg) PO BID PRN constipation #30 tabs 01/13/25
Pending Results: No
[2025-01-13] MEDS: DILAUDID 0.5 MG IV (11:38)
[2025-01-13 14:25] VITALS: BP 112/54
== END 2025-01-13 15:05 | disposition home or self-care (01) | DRG 470 ==
LOC: 2 SOUTH 05:47
PROVIDERS: Physician Assistant; ADMITTING PHYSICIAN Orthopaedic Surgery; CONSULT PHYSICIAN Specialist; FAMILY PHYSICIAN Student in an Organized Health Care Education/Training Program; REFERRING PHYSICIAN Internal Medicine Cardiovascular Disease
PROC: 0SR903A Replacement of Right Hip Joint with Ceramic Synthetic Substitute, Uncemented, Open Approach (ICD-10-PCS; 2025-01-12)
DX: M16.11 Unilateral primary osteoarthritis, right hip (principal); E87.1 Hypo-osmolality and hyponatremia; N17.9 Acute kidney failure, unspecified; K50.90 Crohn's disease, unspecified, without complications; N18.31 Chronic kidney disease, stage 3a; I12.9 Hypertensive chronic kidney disease with stage 1 through stage 4 chronic kidney disease, or unspecified chronic kidney disease; I48.0 Paroxysmal atrial fibrillation
CPT/HCPCS: 36415; 73502; 80048; 80053; 83036; 83735; 85027; 87070; 97110; 97116; 97163; 97167; 97530; 97535; C1776